=== PATIENT | female | born 1935 | race Two or more races ===

== ENCOUNTER 2023-01-13 12:39 | Emergency (ER) | payer MEDICARE, OTHER ==
[2023-01-13 13:17] LABS: #Monocytes 0.5 thou/uL (0.11-0.59); #Neutrophils 4.5 thou/uL (1.40-6.50); %Basophils 0.2 % (0.0-1.0); %Eosinophils 0.5 % (0.0-10.0); %Lymphocytes 16.8 % (21.0-51.0); %Monocytes 7.6 % (0.0-10.0); %Neutrophils 74.7 % (42.0-75.0); Hemoglobin 14.1 g/dL (12.0-16.0); Mean Corpuscular HGB CONC 33.6 g/dL (32.0-36.0); Mean Corpuscular Hemoglobin 28.3 pg (27.0-31.0); Mean Corpuscular Volume 84.3 fl (78.0-98.0); Mean Platelet Volume 10.8 fL (7.4-10.4); Platelet Count 239 10x3/uL (130-400); Red Blood Cell (RBC) Count 4.98 mill/uL (4.20-5.40)
[2023-01-13 13:42] LABS: ALT (SGPT) 14 U/L (8-55); AST (SGOT) 18 U/L (5-34); Albumin 4.4 g/dL (3.4-4.8); Alkaline Phosphatase 73 U/L (40-110); Anion Gap 14 mmol/L (10-20); BUN (Urea Nitrogen) 14 mg/dL (9.8-20.1); Bilirubin, Total 1.1 mg/dL (0.2-1.2); Calc. Creatinine Clearance 0 mL/min (70-130); Calcium 8.7 mg/dL (7.8-10.44); Carbon Dioxide 19 mmol/L (23-31); Chloride 97 mmol/L (98-107); Estimated GFR 70; Globulin 2.1 g/dL (2.4-3.5); Glucose 203 mg/dL (83-110); Potassium 4.2 mmol/L (3.5-5.1); Protein, Total 6.5 g/dL (5.8-8.1); Sodium 126 mmol/L (136-145)
[2023-01-13 13:45] LABS: Troponin I Less than 0.010 ng/mL (< 0.028)
[2023-01-13] MEDS ORDERED: Metoclopramide HCl 10 MG/2 ML VIAL ONE (14:30)
[2023-01-13] MEDS ORDERED: diphenhydrAMINE 50 MG/ML VIAL ONE (14:30)
[2023-01-13] MEDS ORDERED: Famotidine/PF 20 mg/2ml Vial ONE (15:26)
[2023-01-13] MEDS ORDERED: Fioricet 325/50/40 mg Tablet ONE (15:26)
[2023-01-13] MEDS ORDERED: Dexamethasone 10 MG/ML VIAL ONE (15:26)
== END 2023-01-13 16:46 | disposition home or self-care (01) ==
LOC: ERS 12:39
DX: R51.9 Headache, unspecified (principal); L50.9 Urticaria, unspecified; I10 Essential (primary) hypertension; E87.1 Hypo-osmolality and hyponatremia; E10.65 Type 1 diabetes mellitus with hyperglycemia; E78.5 Hyperlipidemia, unspecified; Z79.84 Long term (current) use of oral hypoglycemic drugs; Z79.899 Other long term (current) drug therapy
CPT/HCPCS: 36415; 70450; 71045; 80053; 83880; 84484; 85025; 93005; 96365; 96375; J1100; J1200; J2765; S0028